=== PATIENT | female | born 1960 | race Caucasian/White ===

== ENCOUNTER 2018-12-12 16:39 | Emergency (ER) | payer OTHER, SELFPAY ==
[2018-12-12 16:40] VITALS: BP 146/76; PULSE 84; RESP 16; TEMP 37.1; O2SAT 100; BMI 28.6
[2018-12-12 16:57] VITALS: BP 146/76; PULSE 79; RESP 16; O2SAT 99
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
[2018-12-12] MEDS: Ibuprofen 600 MG Tablet PO (17:30)
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
[2018-12-12 17:42] LABS: Absolute Lymphocyte Count 2.47 X10^3/ul (0.83-4.51); Absolute Neutrophil Count 2.6 X10^3/uL (2.0-7.7); Basophil# 0.02 X10^3/uL; Basophil% 0.4 % (0-1); Eosinophil# 0.06 X10^3/uL; Eosinophils% 1.1 % (0-5); Hematocrit 43.1 % (37-47); Hemoglobin 14.6 g/dl (12.0-15.0); Lymphocyte # 2.47 X10^3/ul (4.0); Lymphocyte % 44.1 % (19-41); Mean Corp Hgb Conc 33.9 g/gl (32-36); Mean Corpuscular Hgb 29.4 pg (27.0-32.0); Mean Corpuscular Volume 86.7 fL (81-99); Mean Platelet Vol. 9.7 fl (6.2-12.0); Monocyte# 0.48 X10^3/uL; Monocyte% 8.6 % (0-10); Neutrophil # 2.56 X10^3/uL (2.7-7.7); Neutrophil % 45.6 % (47-70); Platelet Count 221 K/mm3 (150-450); RBC Distribution Width CV 12.5 % (11.6-14.6); RBC Distribution Width SD 40.1 fl (35.1-43.9); Red Blood Count 4.97 M/mm3 (4.2-5.4); White Blood Count 5.6 K/mm3 (4.4-11.0)
[2018-12-12 17:46] LABS: Anion Gap 7 (5-15); BUN 20 mg/dL (7-18); BUN/Creat Ratio 18.9 RATIO (10-20); Chloride 107 mmol/L (98-107); Creatinine, Serum 1.06 mg/dL (0.55-1.02); EST Glomerular Filtration Rate 56 mL/min (>60); Est Glom Filt Rate - Afr Amer 68 mL/min (>60); Estimated Creatinine Clearance 49.35 ml/min; Glucose 106 mg/dL (74-106); Potassium 3.7 mmol/L (3.5-5.1); Sodium Level 140 mmol/L (136-145)
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
[2018-12-12 18:01] LABS: POSITIVE COUNT NO; POSITIVE DIFFERENTIAL NO; POSITIVE MORPHOLOGY NO
[2018-12-12 18:28] VITALS: BP 144/85; PULSE 80; RESP 16; O2SAT 98
[2018-12-12] MEDS: traMADol 50 MG Tablet PO (20:25)
[2018-12-12 20:30] VITALS: BP 138/74; PULSE 76; RESP 16; O2SAT 97
--- NOTE | 2018-12-12 20:41 | ED.RN ---
was able to bear weight at dc. pt states she also has crutches at home as needed. price doones and gatorade given prior to dc. pt very appreciative of care.
== END 2018-12-12 20:42 | disposition home or self-care (01) ==
PROVIDERS: Emergency Provider Emergency Medicine; Family Provider Internal Medicine; PCP Internal Medicine
DX: S09.90XA Unspecified injury of head, initial encounter (principal); S20.211A Contusion of right front wall of thorax, initial encounter; S93.402A Sprain of unspecified ligament of left ankle, initial encounter; S60.212A Contusion of left wrist, initial encounter; S50.812A Abrasion of left forearm, initial encounter; R20.0 Anesthesia of skin; M54.5 Low back pain; M25.511 Pain in right shoulder; V89.2XXA Person injured in unspecified motor-vehicle accident, traffic, initial encounter; Y93.9 Activity, unspecified; Y92.9 Unspecified place or not applicable; I10 Essential (primary) hypertension; E78.5 Hyperlipidemia, unspecified; K21.9 Gastro-esophageal reflux disease without esophagitis; Z79.899 Other long term (current) drug therapy
CPT/HCPCS: 70450; 71046; 72100; 72125; 72170; 73030; 73110; 73610; 80048; 85025; 99285; A4216